=== PATIENT | male | born 1950 | race Caucasian/White ===

== ENCOUNTER 2024-11-08 11:46 | Outpatient (CLI) | payer MEDICARE, OTHER, SELFPAY ==
--- NOTE | 2024-11-08 11:49 | CT_ITS ---
WS: [id number] CT CALCIUM SCORE REASON FOR VISIT: HYPERLIPIDEMIA/HTN/OBESITY; Coronary artery disease risk assessment COMPARISON: None TECHNIQUE: Noncontrast coronary CT in combination with quantitative analysis performed on a separate workstation were used to determine CACS (Agatston score) TOTAL EXAM DOSE: 93.73 mGy.cm ECG GATING: Prospective SCAN RANGE: Pulmonary artery bifurcation to Inferior aspect of heart COMPLICATIONS: None FINDINGS: Technical Quality/Examination Quality: Good Limitations: None OVERALL SCORES Total calcium score: 92 Total volume score: 87 mm3 Percentile: 25th-50th% ARTERY SCORES Left main coronary artery: 0 Left anterior descending artery: 37 Left circumflex artery: 19 Right coronary artery: 36 OTHER FINDINGS: Mediastinum: Mild ectasia aorta. Normal size heart. Thoracic aorta: Mild plaque. Visualized lungs are clear. Lungs: Normal. MINIMAL: 1-10 MILD: 11-100 MODERATE: 101-400 SEVERE:>400 CT/CT heart w calcium score 93307 IMPRESSION: 1. Calcium scoring places the patient between the 25th and 50th percentiles for males of this age. Mildly increased risk for coronary artery event. Recommend moderate intensity s tatin consideration. Total calcium score of 92. GRADING OF CORONARY ARTERY DISEASE (BASED ON TOTAL CALCIUM SCORE) NO EVIDENCE OF CAD: 0 calcium score
== END 2024-11-08 11:47 | disposition home or self-care (01) ==
LOC: RAD 11:47
PROVIDERS: PCP Family Medicine; Visit Provider Family Medicine
DX: E78.5 Hyperlipidemia, unspecified (principal); I10 Essential (primary) hypertension; E66.9 Obesity, unspecified; I77.819 Aortic ectasia, unspecified site; I70.0 Atherosclerosis of aorta
CPT/HCPCS: 75571